=== PATIENT | female | born 1985 | race American Indian/Alaskan Native ===

== ENCOUNTER 2017-03-23 08:16 | Emergency (ER) | payer MEDICAID ==
[2017-03-23 09:07] LABS: Bilirubin,Urine NEG (Negative); Blood,Urine SM (Negative); Ketones,Urine NEG (Negative); Leukocyte Esterase,Urine NEG (Negative); Nitrite,Urine NEG (Negative); Urobilinogen,Urine < 2.0 mg/dL (<2.0); WBC,Urine < 1.0 /HPF (0.0-6.0)
[2017-03-23 09:22] LABS: Basophils % (Auto) 0.1 % (0.0-1.8); Eosinophils % (Auto) 0.6 % (0.0-4.3); Hematocrit 33.5 % (30.3-42.9); Hemoglobin 11.4 gm/dl (10.1-14.3); Mean Corpuscular HGB Conc 34 % (30-34); Mean Corpuscular Volume 71 fl (79-97); Platelet Count 330 K/mm3 (140-440); Red Blood Count 4.73 M/mm3 (3.65-5.03); Red Cell Distribution Width 16.8 % (13.2-15.2); White Blood Count 9.2 K/mm3 (4.5-11.0)
[2017-03-23 09:24] LABS: Mean Corpuscular Hemoglobin 24 pg (28-32)
[2017-03-23 09:36] LABS: Anion Gap 23 mmol/L; Blood Urea Nitrogen 22 mg/dL (7-17); Calcium 9.8 mg/dL (8.4-10.2); Carbon Dioxide 19 mmol/L (22-30); Chloride 95.3 mmol/L (98-107); Glucose 412 mg/dL (65-100); Potassium 4.5 mmol/L (3.6-5.0); Sodium 133 mmol/L (137-145)
--- NOTE | 2017-03-23 10:29 | Emergency Department Report ---
ED N/V/D HPI - General Chief complaint: Nausea/Vomiting/Diarrhea Stated complaint: N/V X 2 DAYS/ABD PAINS Time Seen by Provider: 03/23/17 10:29 Source: patient, family Mode of arrival: Ambulatory Limitations: No Limitations - History of Present Illness Initial comments: Patient here report nausea vomiting and diarrhea for the last 2 days. Patient says she has abdominal pain. She says she tried [id number] medication without any relief. Pain is 2/ 10 and cramping to her abdomen. She says she takes insulin and metformin but she was able to take her metformin today because she was vomiting. She says she also take losartan with HCTZ which she has not taken today because she was nauseous and vomiting. Denies any urinary burning frequency or urgency. Denies any fever or chills. Denies any chest pain, cough or difficulty breathing. MD complaint: nausea, vomiting, diarrhea, abdominal pain Onset/Timin -: days(s) Description of Vomiting: food contents Description of Diarrhea: water Associated Abdominal Pain: Yes Location: epigastric Radiation: none Severity: mild Pain Scale: 2 Quality: cramping Consistency: intermittent Improves with: none Worsens with: vomiting Context: other (unknown) Associated Symptoms: loss of appetite, nausea/vomiting. denies: myalgias, chest pain, cough, diaphoresis, fever/chills, headaches, malaise, rash, dysuria , shortness of breath, syncope, weakness - Related Data Home Medications Medication Instructions Recorded Confirmed Last Taken Insulin NPH Human Isophane 12 units SQ HS 08/09/16 08/09/16 08/08/16 [HumuLIN N] Insulin Regular, Human [HumuLIN R] 12 unit SQ 08/09/16 08/08/16 Insulin Regular, Human [HumuLIN R] 14 unit SQ ACHS 08/09/16 08/09/16 08/09/16 Previous Rx's Medication Instructions Recorded Last Taken Type Acetaminophen [Acetaminophen TAB] 500 mg PO Q6HR PRN #25 tablet 08/09/16 Unknown Rx Promethazine [Phenergan TAB] 25 mg PO Q8HR PRN #12 tab 03/23/17 Unknown Rx Allergies Allergy/AdvReac Type Severity Reaction Status Date / Time No Known Allergies Allergy Unverified 10/08/13 14:23 ED Review of Systems ROS: Stated complaint: N/V X 2 DAYS/ABD PAINS Other details as noted in HPI Comment: All other systems reviewed and negative Constitutional: denies: chills, fever Eyes: denies: eye pain, eye discharge ENT: denies: throat pain, epistaxis, congestion Respiratory: no symptoms reported Cardiovascular: denies: chest pain, palpitations, edema, syncope Gastrointestinal: abdominal pain, nausea, vomiting, diarrhea. denies: hematemesis, melena, hematochezia Genitourinary: denies: urgency, dysuria, frequency, hematuria, discharge, abnormal menses, dyspareunia Musculoskeletal: denies: back pain, joint swelling, arthralgia, myalgia Skin: denies: rash Neurological: denies: headache, weakness, numbness, paresthesias, confusion, abnormal gait, vertigo ED Past Medical Hx - Past Medical History Previous Medical History?: Yes Hx Hypertension: Yes Hx Diabetes: Yes Additional medical history: Vaginal delivery x 2 - Surgical History Past Surgical History?: Yes Additional Surgical History: x 1 - Family History Family history: hypertension - Social History Smoking Status: Never Smoker Substance Use Type: None - Medications Home Medications: Home Medications Medication Instructions Recorded Confirmed Last Taken Type Acetaminophen [Acetaminophen TAB] 500 mg PO Q6HR PRN #25 tablet 08/09/16 Unknown Rx Insulin NPH Human Isophane 12 units SQ HS 08/09/16 08/09/16 08/08/16 History [HumuLIN N] Insulin Regular, Human [HumuLIN R] 12 unit SQ 08/09/16 08/08/16 History Insulin Regular, Human [HumuLIN R] 14 unit SQ ACHS 08/09/16 08/09/16 08/09/16 History Promethazine [Phenergan TAB] 25 mg PO Q8HR PRN #12 tab 03/23/17 Unknown Rx ED Physical Exam - General Limitations: No Limitations General appearance: alert, in no apparent distress - Head Head exam: Present: atraumatic, normocephalic, normal inspection - Eye Eye exam: Present: normal appearance, PERRL, EOMI. Absent: periorbital swelling , periorbital tenderness Pupils: Present: normal accommodation - ENT ENT exam: Present: normal exam, normal orophraynx, mucous membranes moist, TM's normal bilaterally, normal external ear exam - Neck Neck exam: Present: normal inspection, full ROM. Absent: tenderness, meningismus, lymphadenopathy - Respiratory Respiratory exam: Present: normal lung sounds bilaterally. Absent: respiratory distress, chest wall tenderness - Cardiovascular Cardiovascular Exam: Present: normal rhythm, tachycardia, normal heart sounds - GI/Abdominal GI/Abdominal exam: Present: soft, normal bowel sounds. Absent: distended, tenderness, guarding, rebound, rigid, organomegaly, mass, bruit, pulsatile mass , hernia - Extremities Exam Extremities exam: Present: normal inspection, full ROM, normal capillary refill. Absent: tenderness, pedal edema, joint swelling, calf tenderness - Back Exam Back exam: Present: normal inspection, full ROM. Absent: tenderness, CVA tenderness (R), CVA tenderness (L), muscle spasm, paraspinal tenderness, vertebral tenderness, rash noted - Neurological Exam Neurological exam: Present: alert, oriented X3, normal gait, reflexes normal. Absent: motor sensory deficit - Psychiatric Psychiatric exam: Present: normal affect, normal mood - Skin Skin exam: Present: warm, dry, intact, normal color. Absent: rash ED Course Vital Signs 03/23/17 03/23/17 03/23/17 08:24 11:07 14:23 Temperature 98.6 F 98.6 F Pulse Rate 104 H 63 Respiratory 16 20 17 Rate Blood Pressure 149/104 Blood Pressure 129/85 [Left] O2 Sat by Pulse 99 100 Oximetry - Reevaluation(s) Reevaluation #1: 03/23/17 13:11 Patient received IV fluids 1 L, insulin 5 mg IV with blood sugar of 344 after IV fluid and insulin. She is receiving another liter of IV fluid along with insulin 7 units IV and given morphine 4 mg IV and Zofran 4 mg IV for complaints of abdominal pain. ED Medical Decision Making - Lab Data Result diagrams: 03/23/17 08:42 03/23/17 08:43 Lab Results 03/23/17 03/23/17 03/23/17 Range/Units 08:41 08:42 08:43 WBC 9.2 (4.5-11.0) K/mm3 RBC 4.73 (3.65-5.03) M/mm3 Hgb 11.4 (10.1-14.3) gm/dl Hct 33.5 (30.3-42.9) % MCV 71 L (79-97) fl MCH 24 L (28-32) pg MCHC 34 (30-34) % RDW 16.8 H (13.2-15.2) % Plt Count 330 (140-440) K/mm3 Lymph % (Auto) 24.1 (13.4-35.0) % [place] % (Auto) 5.9 (0.0-7.3) % Eos % (Auto) 0.6 (0.0-4.3) % Baso % (Auto) 0.1 (0.0-1.8) % Lymph # 2.2 (1.2-5.4) K/mm3 [place] # 0.5 (0.0-0.8) K/mm3 Eos # 0.1 (0.0-0.4) K/mm3 Baso # 0.0 (0.0-0.1) K/mm3 Seg Neutrophils % 69.3 (40.0-70.0) % Seg Neutrophils # 6.4 (1.8-7.7) K/mm3 VBG pH (7.320-7.420) Sodium 133 L (137-145) mmol/L Potassium 4.5 (3.6-5.0) mmol/L Chloride 95.3 L (98-107) mmol/L Carbon Dioxide 19 L (22-30) mmol/L Anion Gap 23 mmol/L BUN 22 H (7-17) mg/dL Creatinine 1.0 (0.7-1.2) mg/dL Estimated GFR > 60 ml/min BUN/Creatinine Ratio 22.00 % Glucose 412 H (65-100) mg/dL Calcium 9.8 (8.4-10.2) mg/dL HCG, Qual (Negative) Urine Color Yellow (Yellow) Urine Turbidity Clear (Clear) Urine pH 5.0 (5.0-7.0) Ur Specific [place] 1.024 (1.003-1.030) Urine Protein 100 mg/dl (Negative) mg/dL Urine Glucose (UA) >=500 (Negative) mg/dL Urine Ketones Neg (Negative) mg/dL Urine Blood Sm (Negative) Urine Nitrite Neg (Negative) Urine Bilirubin Neg (Negative) Urine Urobilinogen < 2.0 (<2.0) mg/dL Ur Leukocyte Esterase Neg (Negative) Urine WBC (Auto) < 1.0 (0.0-6.0) /HPF Urine RBC (Auto) 2.0 (0.0-6.0) /HPF U Epithel Cells (Auto) 2.0 (0-13.0) /HPF Hyaline Casts 1 /LPF 03/23/17 03/23/17 Range/Units 08:43 10:54 WBC (4.5-11.0) K/mm3 RBC (3.65-5.03) M/mm3 Hgb (10.1-14.3) gm/dl Hct (30.3-42.9) % MCV (79-97) fl MCH (28-32) pg MCHC (30-34) % RDW (13.2-15.2) % Plt Count (140-440) K/mm3 Lymph % (Auto) (13.4-35.0) % [place] % (Auto) (0.0-7.3) % Eos % (Auto) (0.0-4.3) % Baso % (Auto) (0.0-1.8) % Lymph # (1.2-5.4) K/mm3 [place] # (0.0-0.8) K/mm3 Eos # (0.0-0.4) K/mm3 Baso # (0.0-0.1) K/mm3 Seg Neutrophils % (40.0-70.0) % Seg Neutrophils # (1.8-7.7) K/mm3 VBG pH 7.289 L (7.320-7.420) Sodium (137-145) mmol/L Potassium (3.6-5.0) mmol/L Chloride (98-107) mmol/L Carbon Dioxide (22-30) mmol/L Anion Gap mmol/L BUN (7-17) mg/dL Creatinine (0.7-1.2) mg/dL Estimated GFR ml/min BUN/Creatinine Ratio % Glucose (65-100) mg/dL Calcium (8.4-10.2) mg/dL HCG, Qual Negative (Negative) Urine Color (Yellow) Urine Turbidity (Clear) Urine pH (5.0-7.0) Ur Specific [place] (1.003-1.030) Urine Protein (Negative) mg/dL Urine Glucose (UA) (Negative) mg/dL Urine Ketones (Negative) mg/dL Urine Blood (Negative) Urine Nitrite (Negative) Urine Bilirubin (Negative) Urine Urobilinogen (<2.0) mg/dL Ur Leukocyte Esterase (Negative) Urine WBC (Auto) (0.0-6.0) /HPF Urine RBC (Auto) (0.0-6.0) /HPF U Epithel Cells (Auto) (0-13.0) /HPF Hyaline Casts /LPF Blood glucose at this time is 228 - Medical Decision Making I spoke with Dr. Andujar who is attending physician in emergency room. He is aware patient presentation, clinical and laboratory findings. He agrees that K she patient can be discharged home to follow up with her primary care physician. ED course: Patient here for nausea vomiting and diarrhea for 2 days found to have hyperglycemia with history of type 1 diabetes. He was unable to take her metformin because of nausea and vomiting. Patient given a total of 2 L of IV fluid and 5 units of insulin IV along with another 7 units of insulin IV. A sugar at present is a 228. Patient has no abdominal pain at present. Reevaluation of abdomen remains the same. Patient has no episode of vomiting or diarrhea in emergency room. She was also given morphine 4 mg IV for abdominal pain and Zofran 8 mg total for nausea. Patient able to tolerate water in emergency room without any nausea or vomiting. Her diarrhea has subsided. Patient says she is feeling better and she is ready to go. Patient discharged home to call her primary care physician and schedule a follow-up visit. Take blood pressure medication and your regular insulin dosage and metformin as prescribed by your primary care. Patient discharged home with her with prescription for Phenergan. Critical care attestation.: If time is entered above; I have spent that time in minutes in the direct care of this critically ill patient, excluding procedure time. ED Disposition Clinical Impression: Nausea vomiting and diarrhea, Elevated blood pressure reading in office with diagnosis of hypertension Abdominal pain Qualifiers: Abdominal location: generalized Qualified Code(s): R10.84 - Generalized abdominal pain Hyperglycemia due to type 2 diabetes mellitus Qualifiers: Diabetes mellitus director compensation insulin use: with senior living use Qualified Code(s): E11.65 - Type 2 diabetes mellitus with hyperglycemia; Z79.4 - surgery specialist (current ) use of insulin Disposition: - TO HOME OR SELFCARE Is pt being admited?: No Does the pt Need Aspirin: No Condition: Stable Instructions: Diabetes Mellitus Type 2 in Adults (ED), Hypertension (ED), Acute Nausea and Vomiting (ED), Abdominal Pain (ED), Acute Diarrhea (ED), Nutrition Tips for Relief of Diarrhea (ED) Additional Instructions: Please follow-up with your primary care physician call today to schedule an appointment. Please take her metformin any insulin as instructed by a primary care. Please increase her fluid intake. Take Phenergan for nausea but please refrain from driving or operating heavy machinery as this medication can cause drowsiness Avoid eating in food that is spicy or carbonated. Prescriptions: Promethazine [Phenergan TAB] 25 mg PO Q8HR PRN #12 tab PRN Reason: Nausea Referrals: PRIMARY CARE, [Primary Care Provider] - 2-3 Days Forms: Accompanied Note, Work/School Release Form(ED)
[2017-03-23] MEDS ORDERED: NACL 0.9% 1000 ML 1,000 ML ONE (10:43)
[2017-03-23] MEDS ORDERED: NACL 0.9% 1000 ML 1,000 ML IV ONE ×2 (10:47→12:04)
[2017-03-23] MEDS ORDERED: ZOFRAN IV ONE ×2 (10:47→12:04)
[2017-03-23] MEDS ORDERED: MORPHINE IV ONE (12:04)
[2017-03-23 14:24] VITALS: BP 129/85
== END 2017-03-23 14:51 | disposition home or self-care (01) ==
LOC: ED 08:16
DX: I10 Essential (primary) hypertension (principal); R11.2 Nausea with vomiting, unspecified; R19.7 Diarrhea, unspecified; R10.84 Generalized abdominal pain; E11.65 Type 2 diabetes mellitus with hyperglycemia; Z79.4 Long term (current) use of insulin
CPT/HCPCS: 36415; 80048; 81001; 82805; 82962; 84703; 85025; 96361; 96374; 96375; 96376; 99283; J2270; J2405; J7030; J1815

== ENCOUNTER 2017-08-10 09:41 | Emergency (ER) | payer MEDICAID ==
[2017-08-10 10:34] LABS: Basophils % (Auto) 0.7 % (0.0-1.8); Eosinophils % (Auto) 2.2 % (0.0-4.3); Hematocrit 34.3 % (30.3-42.9); Hemoglobin 11.6 gm/dl (10.1-14.3); Mean Corpuscular HGB Conc 34 % (30-34); Mean Corpuscular Volume 72 fl (79-97); Platelet Count 368 K/mm3 (140-440); Red Blood Count 4.74 M/mm3 (3.65-5.03); Red Cell Distribution Width 15.5 % (13.2-15.2); White Blood Count 8.9 K/mm3 (4.5-11.0)
[2017-08-10 10:40] LABS: Mean Corpuscular Hemoglobin 24 pg (28-32)
[2017-08-10 10:51] LABS: BUN/Creatinine Ratio 22; Blood Urea Nitrogen 13 mg/dL (7-17); Carbon Dioxide 22 mmol/L (22-30)
[2017-08-10 10:52] LABS: Alanine Aminotransferase 12 units/L (7-56); Albumin 4.5 g/dL (3.9-5); Albumin/Globulin Ratio 1.3 %; Alkaline Phosphatase 53 units/L (35-129); Anion Gap 19 mmol/L; Calcium 9.2 mg/dL (8.4-10.2); Glucose 253 mg/dL (65-100); Lipase 55 units/L (13-60); Potassium 4.4 mmol/L (3.6-5.0); Sodium 136 mmol/L (137-145); Total Protein 8.1 g/dL (6.3-8.2)
[2017-08-10 11:33] LABS: Bilirubin,Urine NEG (Negative); Blood,Urine NEG (Negative); Ketones,Urine NEG (Negative); Leukocyte Esterase,Urine NEG (Negative); Mucus,Urine FEW /HPF; Nitrite,Urine NEG (Negative); RBC,Urine < 1.0 /HPF (0.0-6.0); Urobilinogen,Urine < 2.0 mg/dL (<2.0); WBC,Urine < 1.0 /HPF (0.0-6.0)
--- NOTE | 2017-08-10 13:03 | Emergency Department Report ---
ED N/V/D HPI - General Chief complaint: Nausea/Vomiting/Diarrhea Stated complaint: VOMITING Time Seen by Provider: 08/10/17 12:31 Source: patient Mode of arrival: Ambulatory Limitations: No Limitations - History of Present Illness Initial comments: This is a 32-year-old female nontoxic, well nourished in appearance, no acute signs of distress presents to the ED with c/o of nausea, vomiting, and diarrhea x2 days. Patient stated she ate [place] food 2 days ago and then that night developed nausea with vomiting and then diarrhea yesterday. Patient denies any abdominal pain, chest pain, shortness of breathe, fever, chills, headache, stiff neck, back pain, numbness or tingling. Patient denies any allergies. PMH includes hypertension and diabetes. Patient stated she took her losartan 25 mg this morning. Patient also stated this morning her glucose finger stick was 100. Patient states vomit consistence of food content. MD complaint: nausea, vomiting, diarrhea -: Gradual, days(s) (2) Description of Vomiting: food contents Description of Diarrhea: water Associated Abdominal Pain: No Radiation: none Severity: mild Pain Scale: 0 Consistency: constant Improves with: none Worsens with: none Context: possible food poisoning Associated Symptoms: nausea/vomiting. denies: myalgias, chest pain, cough, diaphoresis, fever/chills, headaches, loss of appetite, malaise, rash, dysuria, shortness of breath, syncope, weakness - Related Data Home Medications Medication Instructions Recorded Confirmed Last Taken Insulin NPH Human Isophane 12 units SQ HS 08/09/16 08/09/16 08/08/16 [HumuLIN N] Insulin Regular, Human [HumuLIN R] 12 unit SQ 08/09/16 08/08/16 Insulin Regular, Human [HumuLIN R] 14 unit SQ ACHS 08/09/16 08/09/16 08/09/16 Previous Rx's Medication Instructions Recorded Last Taken Type Acetaminophen [Acetaminophen TAB] 500 mg PO Q6HR PRN #25 tablet 08/09/16 Unknown Rx Promethazine [Phenergan TAB] 25 mg PO Q8HR PRN #12 tab 03/23/17 Unknown Rx Ondansetron [Zofran Odt] 4 mg PO Q8H #15 tab.rapdis 08/10/17 Unknown Rx Allergies Allergy/AdvReac Type Severity Reaction Status Date / Time No Known Allergies Allergy Unverified 10/08/13 14:23 ED Review of Systems ROS: Stated complaint: VOMITING Other details as noted in HPI Constitutional: denies: chills, fever Eyes: denies: eye pain, eye discharge, vision change ENT: denies: ear pain, throat pain Respiratory: denies: cough, shortness of breath, wheezing Cardiovascular: denies: chest pain, palpitations Endocrine: no symptoms reported Gastrointestinal: denies: abdominal pain, nausea, diarrhea Genitourinary: denies: urgency, dysuria, discharge Musculoskeletal: denies: back pain, joint swelling, arthralgia Skin: denies: rash, lesions Neurological: denies: headache, weakness, paresthesias Psychiatric: denies: anxiety, depression Hematological/Lymphatic: denies: easy bleeding, easy bruising ED Past Medical Hx - Past Medical History Hx Hypertension: Yes Hx Diabetes: Yes Additional medical history: Vaginal delivery x 2 - Surgical History Additional Surgical History: x 1 - Social History Smoking Status: Never Smoker Substance Use Type: None - Medications Home Medications: Home Medications Medication Instructions Recorded Confirmed Last Taken Type Acetaminophen [Acetaminophen TAB] 500 mg PO Q6HR PRN #25 tablet 08/09/16 Unknown Rx Insulin NPH Human Isophane 12 units SQ HS 08/09/16 08/09/16 08/08/16 History [HumuLIN N] Insulin Regular, Human [HumuLIN R] 12 unit SQ 08/09/16 08/08/16 History Insulin Regular, Human [HumuLIN R] 14 unit SQ ACHS 08/09/16 08/09/16 08/09/16 History Promethazine [Phenergan TAB] 25 mg PO Q8HR PRN #12 tab 03/23/17 Unknown Rx Ondansetron [Zofran Odt] 4 mg PO Q8H #15 tab.rapdis 08/10/17 Unknown Rx ED Physical Exam - General Limitations: No Limitations General appearance: alert, in no apparent distress - Head Head exam: Present: atraumatic, normocephalic, normal inspection - Eye Eye exam: Present: normal appearance, PERRL, EOMI. Absent: scleral icterus, conjunctival injection, nystagmus, periorbital swelling, periorbital tenderness Pupils: Present: normal accommodation - ENT ENT exam: Present: normal exam, normal orophraynx, mucous membranes moist, TM's normal bilaterally, normal external ear exam - Neck Neck exam: Present: normal inspection, full ROM. Absent: tenderness, meningismus, lymphadenopathy, thyromegaly - Respiratory Respiratory exam: Present: normal lung sounds bilaterally. Absent: respiratory distress, wheezes, rales, rhonchi, stridor, chest wall tenderness, accessory muscle use, decreased breath sounds, prolonged expiratory - Cardiovascular Cardiovascular Exam: Present: regular rate, normal rhythm, normal heart sounds. Absent: irregular rhythm, systolic murmur, diastolic murmur, rubs, gallop - GI/Abdominal GI/Abdominal exam: Present: soft, normal bowel sounds. Absent: distended, tenderness, guarding, rebound, rigid, diminished bowel sounds - Expanded GI/Abdominal Exam Expanded GI/Abdominal exam: Absent: psoas sign, obturator sign, heel tap sign, Amaro's sign, Rovsing's sign, tenderness at [place]'s Point, ascites - Rectal Rectal exam: Present: deferred - Extremities Exam Extremities exam: Present: normal inspection, full ROM, normal capillary refill. Absent: tenderness, pedal edema, joint swelling, calf tenderness - Back Exam Back exam: Present: normal inspection, full ROM. Absent: tenderness, CVA tenderness (R), CVA tenderness (L), muscle spasm, paraspinal tenderness, vertebral tenderness, rash noted - Neurological Exam Neurological exam: Present: alert, oriented X3, CN II-XII intact, normal gait, reflexes normal - Psychiatric Psychiatric exam: Present: normal affect, normal mood - Skin Skin exam: Present: warm, dry, intact, normal color. Absent: rash ED Course Vital Signs 08/10/17 08/10/17 09:59 14:08 Temperature 98.1 F Pulse Rate 100 H 89 Respiratory 16 18 Rate Blood Pressure 160/108 Blood Pressure 138/95 [Left] O2 Sat by Pulse 99 100 Oximetry - Reevaluation(s) Reevaluation #1: 08/10/17 13:05 Patient is speaking in full sentences with no signs of distress noted. ED Medical Decision Making - Lab Data Result diagrams: 08/10/17 10:17 08/10/17 10:17 - Medical Decision Making This is a 32-year-old female that presents with nausea, vomiting and diarrhea. Patient is stable and was examined by me. There is no abdominal tenderness or any abdominal abnormalities. CBC, BMP, UA within normal limits. Patient received 1 L of normal saline with 8 mg of Zofran which patient states symptoms of nausea vomiting subsided. By mouth challenge has been obtained and patient tolerated well with no signs of any nausea or vomiting. Patient is discharged with Zofran. Patient was instructed to increase hydration. Patient also instructed Follow-up with a primary care doctor in 3-5 days or if symptoms worsen and continue return to emergency room as soon as possible. At time time of discharge, the patient does not seem toxic or ill in appearance. No acute signs of distress noted. Patient agrees to discharge treatment plan of care. No further questions noted by the patient. Critical care attestation.: If time is entered above; I have spent that time in minutes in the direct care of this critically ill patient, excluding procedure time. ED Disposition Clinical Impression: N&V (nausea and vomiting) Qualifiers: Vomiting type: unspecified Vomiting Intractability: non-intractable Qualified Code(s): R11.2 - Nausea with vomiting, unspecified Diarrhea Qualifiers: Diarrhea type: unspecified type Qualified Code(s): R19.7 - Diarrhea, unspecified Disposition: DC-01 TO HOME OR SELFCARE Is pt being admited?: No Does the pt Need Aspirin: No Condition: Stable Instructions: Ondansetron (By mouth), Acute Nausea and Vomiting (ED), Acute Diarrhea (ED) Additional Instructions: Follow-up with a primary care doctor in 3-5 days or if symptoms worsen and continue return to emergency room as soon as possible. Increase hydration as much as possible. Prescriptions: Ondansetron [Zofran Odt] 4 mg PO Q8H #15 tab.rapdis Referrals: PRIMARY CAREMD [Primary Care Provider] - 3-5 Days BOAZ WOLFE MD [Staff Physician] - 3-5 Days [facility] [Outside] - 3-5 Days [facility] [Outside] - 3-5 Days Forms: Work/School Release Form(ED)
[2017-08-10] MEDS: ZOFRAN IV ONE (13:08)
[2017-08-10] MEDS: NACL 0.9% 1000 ML 1,000 ML IV ONE (13:08)
[2017-08-10 14:09] VITALS: BP 138/95
== END 2017-08-10 14:57 | disposition home or self-care (01) ==
LOC: ED 09:41
DX: R11.2 Nausea with vomiting, unspecified (principal); R19.7 Diarrhea, unspecified; I10 Essential (primary) hypertension; E11.9 Type 2 diabetes mellitus without complications; Z79.4 Long term (current) use of insulin
CPT/HCPCS: 36415; 80053; 81001; 83690; 85025; 96361; 96374; 99283; J2405; J7030